=== PATIENT | male | born 1980 ===

== ENCOUNTER 2025-02-05 06:19 | Day surgery (SDC) | payer BC, SELFPAY | END 2025-02-05 15:57 | disposition home or self-care (01) | LOC: GI 06:19 | PROVIDERS: ATTENDING PHYSICIAN Internal Medicine Gastroenterology | DX: Z12.11 Encounter for screening for malignant neoplasm of colon (principal); K63.5 Polyp of colon; K62.1 Rectal polyp | CPT/HCPCS: 45385; 45380; 88305 ==

== ENCOUNTER → 2025-09-24 08:31 | Outpatient (REF) | payer BC, SELFPAY | LOC: EMG 08:31 | PROVIDERS: ATTENDING PHYSICIAN Nurse Practitioner | DX: R20.2 Paresthesia of skin (principal); R20.0 Anesthesia of skin | CPT/HCPCS: 95886; 95909 ==